=== PATIENT | male | born 1990 | race African-American/Black ===

== ENCOUNTER 2024-06-17 03:34 | Emergency (ER) | payer OTHER ==
[~2024-06-17] VITALS: Ht 195.6 cm; Wt 104.3 kg
[2024-06-17 04:16] VITALS: BP 164/108; TEMP 98.7; O2SAT 100
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
--- NOTE | 2024-06-17 04:28 | NUR ---
Patient discharged to home in stable condition. Written and verbal after care instructions given. Patient verbalizes understanding of instruction.
== END 2024-06-17 04:29 | disposition home or self-care (01) ==
LOC: ER 04:10
DX: Z48.00 Encounter for change or removal of nonsurgical wound dressing (principal); F15.10 Other stimulant abuse, uncomplicated; F19.10 Other psychoactive substance abuse, uncomplicated; F17.210 Nicotine dependence, cigarettes, uncomplicated